=== PATIENT | female | born 1985 | race Caucasian/White ===

== ENCOUNTER 2021-07-11 07:43 | Outpatient (RCR) | payer OTHER, SELFPAY ==
[2021-07-11 11:33] VITALS: BP 133/82; PULSE 100; RESP 16; TEMP 35.9; O2SAT 97
[2021-07-11] MEDS: ACETAMINOPHEN 325 MG TABLET 650 MG PO (11:36)
[2021-07-11] MEDS: FAMOTIDINE 20 MG TABLET PO (11:36)
[2021-07-11] MEDS: diphenhydrAMINE HCl CAP 25 MG CAPSULE PO (11:36)
[2021-07-11 12:52] VITALS: BP 129/84; PULSE 82; O2SAT 97
== END 2021-07-11 16:00 ==
LOC: AMCINF 07:43
PROVIDERS: PCP Family Medicine; Visit Provider Internal Medicine Hematology & Oncology
DX: U07.1 COVID-19 (principal); I10 Essential (primary) hypertension; I25.10 Atherosclerotic heart disease of native coronary artery without angina pectoris; E11.9 Type 2 diabetes mellitus without complications
CPT/HCPCS: A9270; M0243; Q0244